=== PATIENT | female | born 1945 | race Caucasian/White ===

== ENCOUNTER 2022-07-06 12:25 | Outpatient (CLI) | payer MEDICARE, BC, SELFPAY ==
[2022-07-06 13:28] LABS: Hemoglobin* 15.9 gm/dL (12.0-16.0); White Blood Count* 8.34 K/uL (4.50-11.00)
[2022-07-06 13:29] LABS: Hematocrit 47.1 % (33.0-51.0); Mean Corpuscular HGB Conc 34 gm/dL (32-36); Mean Corpuscular Hemoglobin 29 pg (26-34); Mean Corpuscular Volume 87 fL (80-100); Platelet Count* 283 K/uL (140-440)
[2022-07-06 13:30] LABS: Slide Review Reflex No
[2022-07-06 13:33] LABS: Hemoglobin A1C* 6.3 % (0-5.6)
[2022-07-06 21:41] LABS: Albumin* 4.8 g/dL (3.3-5.0); Chloride* 101 mmol/L (96-114); Sodium* 137 mmol/L (135-149)
[2022-07-06 21:43] LABS: Cholesterol* 143 mg/dL (90-199); Creatinine* 1.1 mg/dL (0.5-1.5); Estimated Glomerular Filt Rate 52 ml/min
[2022-07-06 21:44] LABS: Alanine Aminotransferase* 19 U/L (4-35); Alkaline Phosphatase* 78 U/L (40-150); Aspartate Amino Transferase* 26 U/L (12-35); Blood Urea Nitrogen* 25 mg/dL (7-30); Calcium* 10.1 mg/dL (8.4-10.6); Carbon Dioxide* 27 mmol/L (20-32); Glucose* 105 mg/dL (60-115); Total Protein* 7.5 g/dL (6.0-8.3); Triglycerides* 188 mg/dL (40-149)
[2022-07-06 21:45] LABS: HDL Cholesterol* 45 mg/dL (>=50); LDL Cholesterol Calculated 60 mg/dL (<100)
== END 2022-07-06 12:26 | disposition home or self-care (01) ==
PROVIDERS: PCP Family Medicine; Visit Provider Family Medicine
DX: Z00.00 Encounter for general adult medical examination without abnormal findings (principal); E78.5 Hyperlipidemia, unspecified; R73.03 Prediabetes; E11.9 Type 2 diabetes mellitus without complications; I10 Essential (primary) hypertension; N18.31 Chronic kidney disease, stage 3a
CPT/HCPCS: 80053; 80061; 83036; 85027

== ENCOUNTER 2023-09-27 08:27 | Outpatient (CLI) | payer MEDICARE, BC, SELFPAY | END 2023-09-27 08:28 | disposition home or self-care (01) | LOC: NFLDREF 10-07 19:37 | PROVIDERS: PCP Family Medicine; Referring Provider Family Medicine; Visit Provider Physician Assistant Medical | DX: E11.9 Type 2 diabetes mellitus without complications (principal); E78.5 Hyperlipidemia, unspecified; I10 Essential (primary) hypertension; N18.31 Chronic kidney disease, stage 3a | CPT/HCPCS: 80053; 80061; 84443 ==

== ENCOUNTER 2023-10-17 12:39 | Outpatient (CLI) | payer MEDICARE, BC, SELFPAY | END 2023-10-17 12:40 | disposition home or self-care (01) | LOC: FRMREF 12:39 | PROVIDERS: PCP Family Medicine; Visit Provider Family Medicine | DX: E11.9 Type 2 diabetes mellitus without complications (principal); I10 Essential (primary) hypertension; E78.5 Hyperlipidemia, unspecified; I42.9 Cardiomyopathy, unspecified | CPT/HCPCS: 82043; 82570 ==

== ENCOUNTER 2023-10-31 14:40 | Outpatient (CLI) | payer MEDICARE, BC, SELFPAY ==
--- NOTE | 2023-10-31 15:00 | CRLHL7_ITS ---
For Patients: As a result of the Century Cures Act, medical imaging exams and procedure reports are released immediately into your electronic medical record. You may view this report before your referring provider. If you have questions, please contact your health care provider. DXA BONE MINERAL DENSITY STUDY Reason for exam: Osteopenia. Current height (in): 60.0. Weight (lb): 160.0. Menopause age: 29. Ethnicity: White. 1. Have you had a previous hip or vertebral fracture? No. 2. Have you had any fractures during your adult life which did not result from significant trauma (e.g., auto accident)? No. 3. Did either of your parents have a hip fracture? No. 4. Do you smoke? No. 5. Have you ever taken Glucocorticoids? No. 6. Do you have rheumatoid arthritis? No. 7. Do you have secondary osteoporosis? No. 8. Do you drink 3 or more alcoholic drinks per day? No. 9. Are you being treated for osteoporosis? No. 10. Have you ever taken any of the following medications: Actonel, Evista, Fosamax, Miacalcin, Reclast, Boniva, Forteo, HRT (i.e. estrogen/hormone therapy), Protelos, Prolia, Vitamin D, Calcium, other ??? please specify. ANSWER: Yes, vitamin D, hormone replacement therapy, and calcium. 11. Do you have any of the following medical conditions: Anorexia or bulimia, asthma or emphysema, end stage renal disease, hyperparathyroidism, any seizure disorders, cancer, inflammatory bowel diseases, hysterectomy, other ??? please specify. ANSWER: No. 12. What was your maximum height (inches)? Not provided. 13. Do you perform weight bearing exercise regularly? Not provided. 14. Do you regularly consume dairy products? Not provided. 15. Do you drink caffeinated beverages? Not provided. 16. At what age did your period start? Not provided. 17. Are you premenopausal? No. 18. How many full term pregnancies have you had? Not provided. 19. Have you ever missed your period for more than 6 months in a row (not including or menopause)? Not provided. TECHNIQUE: Bone mineral density study was performed using the [employer]. FINDINGS: The results of the study expressed as bone mineral density (BMD) are as follows: Lumbar spine L to L4: BMD: 0.871 g/cm2. T-score: -1.6. Z-score: 0.9. Neck Left: BMD:0.736 g/cm2. T-score: -1.0. Z-score: 1.1. Right: BMD: 0.725 g/cm2. T-score: -1.1. Z-score: 1.0. Total Left: BMD: 0.906 g/cm2. T-score: -0.3. Z-score: 1.6. Right: BMD: 0.871 g/cm2. T-score: -0.6. Z-score: 1.3. IMPRESSION: Osteopenia. FRAX 10-year Fracture Risk Major Osteoporotic Fracture: 10 percent Hip Fracture: 1.8 percent Reported Risk Factors: [place] () Neck BMD=0.725, BMI=31.2 Tolu Hwang M.D. Diagnostic Radiologist [email or web address] JOSE RAUL/radha / be/Dictated by: Tolu Hwang MD @ 10/31/2023 3:35:00 PM (Electronically Signed)
== END 2023-10-31 14:41 | disposition home or self-care (01) ==
LOC: RAD 14:42
PROVIDERS: PCP Family Medicine; Visit Provider Family Medicine
DX: M85.80 Other specified disorders of bone density and structure, unspecified site (principal); M85.89 Other specified disorders of bone density and structure, multiple sites; Z78.0 Asymptomatic menopausal state
CPT/HCPCS: 77080

== ENCOUNTER 2024-04-23 13:00 | Outpatient (RCR) | payer MEDICARE, BC, SELFPAY ==
--- NOTE | 2024-02-06 15:47 | PT.OPEX ---
[facility] PT [facility] Outpatient Eval Start: 02/06/24 12:57 Freq: Status: Active Protocol: Document 02/06/24 15:13 EMILIANO (Rec: 02/06/24 15:28 EMILIANO [id number]) E-signed By Silke Mclaughlin, PT Physical Therapy Outpatient Evaluation Insurance Information Insurance Name Medicare B Medical Diagnosis MARYAM Treating Diagnosis MARYAM c pelvic floor coordination impairment Referring Lubna Pierre DO Subjective Subjective She was only having ocassional bladder leakage c laughing, lifting heavy objects until recent illnesses. She had an URI c cold followed by sinus infection and was having large urinary leakages with coughing. She was having to wear large pads multiple times per day. She has a h/o of endometriosis c large suprapubic incisional scar from age 30. She had HRT for a few years p hysterectomy. 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 Preferred Name [facility] Precautions Treatment Precautions/Contraindications vaginal atrophy, Therapy Limitations/Systems Review Not Limited Objective Other/Pertinent Objective Constent provided verbally to internal pelvic floor assessment, use of model to explain pre and post tx. Urethera sphincters hypertonic and tender L>R Tender at 4 and 6 o;clock on layer 2, improved c breathing estrogen deficient hypertorphy of vulvar tissues: labia minora and vaginal canal hip ER 4/5 bilat strength hip IR ROM limited to 25 degrees bilat Diaphragmatic breathing good cough: bulge P: 2/5 E: 2 R: 3 F: 3 glute co-activation Assessment Assessment/Impression Pt is a 78 yr old female c mild MARYAM at baseline that was exaccerbated c recent increased volume and intensity of intraabdominal pressure with coughing from recent illnesses. She is increased in tone of sphincter mm at urethera. Care taken with delicate tissues that have been deficient in estrogen for many years. She would benefit from intra-abdominal pressure management training to aid in functional lifting tasks and for safe strengthening program to aid in cardiovascular wellness. She has a h/o early hysterectomy and is at increased risk of bone density loss, as well as h/o of [place]- both which would benefit from a strengthening program. She is a good candidate for PFPT, increased coordination of pelvic floor muscles with training in initial session. Plan of Care Rehabilitation Potential Good Physical Therapy Goals Pt will be indep c HEP to increase gains made in therapy in 4 weeks. Pt will be able to lift 25# knee to waist x10 c good intra -abdominal pressure to improve functional IADL's of lifting laundry basket s MARYAM in 6 weeks. Pt will be able to cough 5x in standing s leakage of urine in 6 weeks. Treatment Plan/Direct Interventions Ice/Cold/Vasopneumatic,Manual Therapy,Neuromuscular Re-ed, Therapeutic Activities, Therapeutic Exercises Frequency/Duration 1x/week for 6 weeks Patient Will Be Discharged From Therapy Completion of LTG(s),Skills Plateau,Independent w/HEP, Independently Progressing Evaluation Billing Untimed Code Treatment Minutes 30 PT Eval No Charge No Complexity Low Certification Information Initial Certification Date 02/06/24 Ending Certification Date 03/19/24 Provider Signature Shows Agreement With POC & Medical Necessity Physician Signature & Date Requested Please Sign/Date Here Physician Comment/Change : Physician NPI Number #
== END 2024-04-27 13:23 | disposition home or self-care (01) ==
PROVIDERS: PCP Family Medicine; Visit Provider Family Medicine
DX: N39.3 Stress incontinence (female) (male) (principal); Z51.89 Encounter for other specified aftercare
CPT/HCPCS: 97112; 97140; 97161

== ENCOUNTER 2024-05-19 07:38 | Outpatient (CLI) | payer MEDICARE, BC, SELFPAY | END 2024-05-19 07:39 | disposition home or self-care (01) | PROVIDERS: PCP Family Medicine; Visit Provider Family Medicine | DX: I10 Essential (primary) hypertension (principal); E11.9 Type 2 diabetes mellitus without complications; N18.31 Chronic kidney disease, stage 3a | CPT/HCPCS: 80053 ==

== ENCOUNTER 2024-10-06 07:55 | Outpatient (CLI) | payer MEDICARE, BC, SELFPAY | END 2024-10-06 07:56 | disposition home or self-care (01) | PROVIDERS: PCP Family Medicine; Visit Provider Family Medicine | DX: E11.22 Type 2 diabetes mellitus with diabetic chronic kidney disease (principal); I12.9 Hypertensive chronic kidney disease with stage 1 through stage 4 chronic kidney disease, or unspecified chronic kidney disease; N18.31 Chronic kidney disease, stage 3a; Z13.21 Encounter for screening for nutritional disorder; Z11.59 Encounter for screening for other viral diseases | CPT/HCPCS: 80053; 82043; 82570; 82607; 86803 ==